=== PATIENT | male | born 1965 | race African-American/Black ===

== ENCOUNTER → 2020-02-04 | Emergency (ER) | payer OTHER ==
[~2020-02-04] VITALS: Ht 180.3 cm; Wt 136.1 kg
[~2020-02-04] MED LIST: MECLIZINE HCL 25 MG TAB PO ONE
[2020-02-04 12:09] LABS: Eosinophils # (auto) 0.1 10 ^3/uL (0-0.8); Hematocrit 52.6 % (41.0-53.0); Monocytes # (auto) 0.5 10 ^3/uL (0-1.3); Nucleated Red Blood Cells % 0.1 %
[2020-02-04 12:11] LABS: Basophils # (auto) 0 10 ^3/uL (0-0.2); Basophils % (auto) 0.5 % (0.0-2.0); Eosinophils % (auto) 1.4 % (0.0-7.0); Hemoglobin 16.6 g/dL (13.5-17.5); Lymphocytes # (auto) 1.3 10 ^3/uL (0.4-5.4); Lymphocytes % (auto) 19.9 % (10.0-50.0); Mean Corpuscular Hemoglobin 22.9 pg (28.0-32.0); Mean Corpuscular Hgb Conc. 31.5 g/dL (32.0-36.0); Mean Corpuscular Volume 72.6 fL (80.0-100.0); Monocytes % (auto) 8.6 % (0.0-12.0); Neutrophils # (auto) 4.4 10 ^3/uL (1.6-8.6); Neutrophils % (auto) 69.6 % (37.0-80.0); Platelet Count (auto) 132 10^3/uL (140-450); Red Blood Cells 7.24 10^6/uL (4.5-5.90); White Blood Cell 6.4 10^3/uL (4.4-10.8)
[2020-02-04 12:25] LABS: Alanine Aminotransferase 32 U/L (16-61); Albumin 3.7 g/dL (3.4-5.0); Anion Gap 6 (5-15); BUN/Creatinine Ratio 10.8; Blood Urea Nitrogen 13 mg/dL (7-18); Calcium 8.7 mg/dL (8.5-10.1); Carbon Dioxide 27 mmol/L (21-32); Chloride 102 mmol/L (98-107); GFR African American 81 mL/min; GFR Non-African American 67 mL/min; Glucose 310 mg/dL (74-106); Sodium 135 mmol/L (136-145)
[2020-02-04 12:33] LABS: Alkaline Phosphatase 83 U/L (45-117); Aspartate Aminotransferase 12 U/L (15-37); Bilirubin, Total 0.8 mg/dL (0.2-1.0); Total Protein 7.3 g/dL (6.4-8.2)
[2020-02-04 12:45] VITALS: BP 141/83
== END | disposition home or self-care (01) ==
LOC: ER 10:50
DX: E11.9 Type 2 diabetes mellitus without complications (principal)
CPT/HCPCS: 36415; 70450; 71046; 80053; 84484; 85025; 93005; 99285; J8597

== ENCOUNTER 2021-09-21 13:30 | Emergency (ER) | payer OTHER ==
[~2021-09-21] VITALS: Ht 182.9 cm; Wt 136.1 kg
[2021-09-21 14:33] LABS: Urine Bacteria NONE SEEN /hpf (None Seen); Urine Blood Negative /uL (Negative); Urine Hyaline Cast FEW /lpf (0 - 2); Urine Mucus FEW (None Seen); Urine Specific Gravity 1.022 (1.001-1.035); Urine WBC 6 /hpf (0 - 3)
[2021-09-21 16:27] VITALS: BP 152/102
== END 2021-09-21 16:42 | disposition home or self-care (01) ==
LOC: ER 13:30
DX: N45.1 Epididymitis (principal); I10 Essential (primary) hypertension; K21.9 Gastro-esophageal reflux disease without esophagitis
CPT/HCPCS: 76870; 81001

== ENCOUNTER 2021-10-26 05:02 | Emergency (ER) | payer OTHER ==
[~2021-10-26] VITALS: Ht 182.9 cm; Wt 136.1 kg
[2021-10-26 07:37] LABS: Basophils # (auto) 0 10 ^3/uL (0-0.2); Eosinophils # (auto) 0.2 10 ^3/uL (0-0.8); Monocytes # (auto) 0.6 10 ^3/uL (0-1.3); Nucleated Red Blood Cells % 0.2 %
[2021-10-26 07:40] LABS: Urine Bacteria FEW /hpf (None Seen); Urine Blood Negative /uL (Negative); Urine Mucus FEW (None Seen); Urine Specific Gravity 1.031 (1.001-1.035); Urine WBC 2 /hpf (0 - 3)
[2021-10-26 07:44] LABS: Basophils % (auto) 0.7 % (0.0-2.0); Eosinophils % (auto) 2.4 % (0.0-7.0); Hematocrit 40.6 % (41.0-53.0); Hemoglobin 12.2 g/dL (13.5-17.5); Lymphocytes # (auto) 2.3 10 ^3/uL (0.4-5.4); Lymphocytes % (auto) 32.3 % (10.0-50.0); Mean Corpuscular Hemoglobin 18.3 pg (28.0-32.0); Mean Corpuscular Hgb Conc. 30.1 g/dL (32.0-36.0); Mean Corpuscular Volume 60.9 fL (80.0-100.0); Monocytes % (auto) 8.3 % (0.0-12.0); Neutrophils % (auto) 56.3 % (37.0-80.0); Red Blood Cells 6.66 10^6/uL (4.5-5.90)
[2021-10-26 08:30] LABS: Potassium 4.4 mmol/L (3.5-5.1)
[2021-10-26 08:42] LABS: BUN/Creatinine Ratio 9.8; Bilirubin, Total 0.6 mg/dL (0.2-1.0); Calcium 9.2 mg/dL (8.5-10.1); Total Protein 7.6 g/dL (6.4-8.2)
[2021-10-26 10:03] VITALS: BP 135/90
== END 2021-10-26 10:30 | disposition home or self-care (01) ==
LOC: ER 05:02
DX: N43.3 Hydrocele, unspecified (principal); E11.9 Type 2 diabetes mellitus without complications; I10 Essential (primary) hypertension; K21.9 Gastro-esophageal reflux disease without esophagitis
CPT/HCPCS: 36415; 76870; 80053; 81001; 85025

== ENCOUNTER 2022-02-22 07:51 | Emergency (ER) | payer OTHER ==
[~2022-02-22] VITALS: Ht 180.3 cm; Wt 134.7 kg
[2022-02-22] MEDS ORDERED: TRAM-297 PO (09:43)
[2022-02-22] MEDS ORDERED: traMADol HCL 50 MG TAB PO ONE (09:45)
[2022-02-22 11:33] VITALS: BP 140/87
== END 2022-02-22 13:17 | disposition home or self-care (01) ==
LOC: ER 07:51
DX: R07.89 Other chest pain (principal); M79.10 Myalgia, unspecified site; I10 Essential (primary) hypertension; K21.9 Gastro-esophageal reflux disease without esophagitis; E11.9 Type 2 diabetes mellitus without complications; Z79.899 Other long term (current) drug therapy
CPT/HCPCS: 71250; 93005